=== PATIENT | male | born 1955 | race Caucasian/White ===

== ENCOUNTER → 2018-02-03 | Outpatient (CLI) | payer BC ==
--- NOTE | 2018-02-03 14:03 | RADIOLOGY REPORT (SQ) ---
EXAM DESCRIPTION: NM GASTRIC EMPTYING STUDY COMPLETED DATE/TIME: 02/03/2018 1:23 pm REASON FOR STUDY: [id number] VOMITING W/ NAUSEA (R11.2) R11.2 NAUSEA WITH VOMITING, UNSPECIFIE D COMPARISON: None. RADIONUCLIDE AND DOSE: 2 millicuries Tc-99m Sulfur Colloid. The technetium sulfur colloid was administered in an egg salad sandwich. The route of agent administration: Oral. TECHNIQUE: 1 minute serial static imaging performed at time of meal, 1 hour, 2 hours, 3 hours, and 4 hours as needed. Once stomach reaches 90% emptying, the test is complete. Image intensity values pl otted with respect to time with linear regression algorithm. LIMITATIONS: None. FINDINGS: Patient was observed for 4 hours. Immediate post meal serves as baseline. Gastric emptying at 30 minutes was 12.5%. Gastric emptying at 60 minutes was 25.1% Gastric emptying at 90 minutes was 37.6%. Gastric emptying at 120 minutes was 50.1%. Gastric emptying at 240 minutes was 100% Normal values: 60 minutes: 30-90% retained. If less than 30%, abnormally rapid emptying. If greater than 90%, del ayed gastric emptying. 120 minutes: <60% retained. If greater than 60%, delayed gastric emptying. 240 minutes: <10% retained. If greater than 10%, delayed gastric emptying. IMPRESSION: NORMAL GASTRIC EMPTYING. TECHNICAL DOCUMENTATION: JOB ID: [id number] [employer]- All Rights Reserved rev-09/05 Reading location - IP/workstation name: [email or web address]
== END ==
LOC: RAD 07:39
PROVIDERS: ATTEND Internal Medicine Gastroenterology
DX: R11.2 Nausea with vomiting, unspecified (principal)
CPT/HCPCS: 78264; A9541

== ENCOUNTER 2018-06-07 16:07 | Emergency (ER) | payer MEDICARE, BC ==
[2018-06-07] MEDS ORDERED: ASPIRIN 81 MG TABLET, CHEWABLE PO ONE (17:40)
--- NOTE | 2018-06-07 18:05 | EKG REPORT ---
SEVERITY:- ABNORMAL ECG - ATRIAL-SENSED VENTRICULAR-PACED COMPLEXES PROBABLE LEFT ATRIAL ABNORMALITY LEFT BUNDLE BRANCH BLOCK : Confirmed by: Gema Brown MD 07-Jun-2018 18:04:41
[2018-06-07 18:58] LABS: ABSOLUTE BASOPHILS # (AUTO) 0.1 10^3/uL (0.0-0.2); ABSOLUTE EOSINOPHILS # (AUTO) 0.3 10^3/uL (0.0-0.6); ABSOLUTE LYMPHOCYTES (AUTO) 1.8 10^3/uL (0.5-4.7); ABSOLUTE MONOCYTES (AUTO) 0.9 10^3/uL (0.1-1.4); ABSOLUTE NEUT (AUTO) 7.8 10^3/uL (1.7-8.2); BASOPHILS % (AUTO) 0.7 % (0-2); EOSINOPHILS % (AUTO) 3.2 % (0-6); HEMOGLOBIN 12.6 g/dL (13.5-17.0); LYMPHOCYTES % (AUTO) 16.7 % (13-45); MEAN CORPUSCULAR HEMOGLOBIN 28.2 pg (27.0-33.4); MEAN CORPUSCULAR HGB CONC 34.2 g/dL (32.0-36.0); MEAN CORPUSCULAR VOLUME 83 fl (80-97); PLATELET COUNT 245 10^3/uL (150-450); RED BLOOD COUNT 4.48 10^6/uL (4.35-5.55); RED CELL DISTRIBUTION WIDTH 16.4 % (11.5-14.0); SEGMENTED NEUTROPHILS % (AUTO) 71.4 % (42-78); TOTAL CELLS COUNTED % (AUTO) 100 %; WHITE BLOOD COUNT 10.9 10^3/uL (4.0-10.5)
[2018-06-07 19:05] LABS: ALANINE AMINOTRANSFERASE 36 U/L (21-72); ALBUMIN 3.9 g/dL (3.5-5.0); ALKALINE PHOSPHATASE 80 U/L (38-126); ANION GAP 7 (5-19); ASPARTATE AMINO TRANSFERASE 30 U/L (17-59); BILIRUBIN,DIRECT 0.1 mg/dL (0.0-0.4); BILIRUBIN,TOTAL 0.4 mg/dL (0.2-1.3); BLOOD UREA NITROGEN 18 mg/dL (7-20); CALCIUM 8.5 mg/dL (8.4-10.2); CARBON DIOXIDE 30 mmol/L (22-30); CHLORIDE 100 mmol/L (98-107); GLUCOSE 110 mg/dL (75-110); POTASSIUM 4.1 mmol/L (3.6-5.0); SODIUM 137.2 mmol/L (137-145)
--- NOTE | 2018-06-07 19:12 | RADIOLOGY REPORT (SQ) ---
EXAM DESCRIPTION: CHEST SINGLE VIEW COMPLETED DATE/TIME: 06/07/2018 7:03 pm REASON FOR STUDY: chest pressure, h/o CABG and valve replacement COMPARISON: Chest x-ray 03/11/2016. EXAM PARAMETERS: NUMBER OF VIEWS: One view. TECHNIQUE: Single frontal radiographic view of the chest acquired. RADIATION DOSE: NA LIMITATIONS: None. FINDINGS: LUNGS AND PLEURA: No consolidation, pneumothorax or pleural effusion. MEDIASTINUM AND HILAR STRUCTURES: No masses. Contour normal. HEART AND VASCULAR STRUCTURES: The heart is upper normal limit in size. There is no overt vascular c ongestion. BONES: No acute findings. HARDWARE: There is a left-sided pacemaker. Sternotomy wires are present. IMPRESSION: No acute radiographic finding in the chest. TECHNICAL DOCUMENTATION: JOB ID: [id number] [employer]- All Rights Reserved Reading location - IP/workstation name: [email or web address]
--- NOTE | 2018-06-07 19:21 | ER Document Report ---
Entered by LORENE MCHUGH SCRIBE 06/07/181811 Acting as scribe for:ROSARIO CHENG DO ED Medical Screen (RME) - General Chief Complaint: Chest Pain Stated Complaint: CHEST PAIN Time Seen by Provider: 06/07/18 17:31 Primary Care Provider: VIRGINIA SAMAINEGO MD [Primary Care Provider] - Follow up as needed Mode of Arrival: Ambulatory Information source: Patient Notes: Patient is a 63-year-old male with a history of a cardiac stent, bypass (2016, pacemaker 2018) presents to the emergency department complaining of chest pain onset this morning. Patient states he was laying in bed when he began to have shoulder pain around a 0400 this morning. Patient states he placed a heating pad on his shoulder went to sleep, getting up and began to have chest pain. She describes her chest pain as waxing and waning. Faint feeling. He denies any diaphoresis, nausea, trouble breathing or cough. Patient is on warfarin and states he had his levels checked last week which was at 37. I have greeted and performed a rapid initial assessment of this patient. A comprehensive ED assessment and evaluation of the patient, analysis of test results and completion of the medical decision making process will be conducted by additional ED providers. GENERAL: Alert, interacts well. No acute distress. HEAD: Normocephalic, Atraumatic. EYES: Pupils equal, round, and reactive to light. EOMI. ENT: Oral mucosa moist, tongue midline. NECK: Full range of motion. Supple. Trachea midline. LUNGS: Clear to auscultation bilaterally, no wheezes, rales, or rhonchi. No respiratory distress. HEART: Mechanical click auscultated. Regular rate and rhythm. No murmurs, gallops, or rubs. EXTREMITIES: Moves all four extremities spontaneously. PSYCH: Normal affect, normal mood. TRAVEL OUTSIDE OF THE [place] IN LAST 30 DAYS: No - Related Data Allergies/Adverse Reactions: lisinopril Allergy (Severe, Verified 06/07/18 17:23) dexlansoprazole [From Dexilant] Allergy (Verified 08/19/15 14:12) Past Medical History - Social History Frequency of alcohol use: None Drug Abuse: None - Past Medical History Cardiac Medical History: Reports: Hx Hypercholesterolemia, Hx Hypertension Denies: Hx Heart Attack Pulmonary Medical History: Reports: Hx Asthma - ALLERGY INDUCED, Hx Pneumonia, Hx Sleep Apnea Denies: Hx Tuberculosis Neurological Medical History: Reports: Hx Cerebrovascular Accident - Patient reports having a stroke when he was 36 years old.. Denies: Hx Seizures Endocrine Medical History: Reports: Hx Diabetes Mellitus Type 2 Renal/ Medical History: Reports: Hx Benign Prostatic Hyperplasia. Denies: Hx Peritoneal Dialysis GI Medical History: Reports: Hx Gastroesophageal Reflux Disease, Hx Hiatal Hernia. Denies: Hx Hepatitis, Hx Ulcer Musculoskeltal Medical History: Reports Hx Arthritis, Reports Hx Gout Psychiatric Medical History: Denies: Hx Depression Traumatic Medical History: Reports: Hx Fractures - r arm, r leg, mandible, clavicle Infectious Medical History: Denies: Hx Hepatitis Past Surgical History: Reports: Hx Cardiac Surgery - pacemaker, Hx Open Heart Surgery - cabg/avr, Hx Orthopedic Surgery - l shoulder, Hx Testicular Surgery - turp, Hx Urinary Tract Surgery - TURP. Denies: Hx Pacemaker - Immunizations Hx Diphtheria, Pertussis, Tetanus Vaccination: Yes Physical Exam - Vital signs Vitals: Temp Pulse Resp BP Pulse Ox 99.1 F 76 18 158/54 H 97 06/07/18 16:27 06/07/18 16:27 06/07/18 16:27 06/07/18 16:27 06/07/18 16:27 Course - Vital Signs Vital signs: Temp Pulse Resp BP Pulse Ox 99.1 F 76 18 158/54 H 97 06/07/18 16:27 06/07/18 16:27 06/07/18 16:27 06/07/18 16:27 06/07/18 16:27 Doctor's Discharge - Discharge Referrals: VIRGINIA SAMANIEGO MD [Primary Care Provider] - Follow up as needed I personally performed the services described in the documentation, reviewed and edited the documentation which was dictated to the scribe in my presence, and it accurately records my words and actions.
[2018-06-07] MEDS ORDERED: KETOROLAC TROMETHAMINE INJ/PF 30 MG/1 ML SDV IV ONE (20:39)
[2018-06-07] MEDS ORDERED: ASPIRIN 81 MG TABLET, CHEWABLE ONE (20:43)
[2018-06-07 20:51] VITALS: BP 117/72
--- NOTE | 2018-06-07 21:19 | ER Document Report ---
ED General - General Chief Complaint: Chest Pain Stated Complaint: CHEST PAIN Time Seen by Provider: 06/07/18 17:31 Primary Care Provider: VIRGINIA SAMANIEGO MD [NO LOCAL MD] - Follow up in 3-5 days Mode of Arrival: Ambulatory Notes: Patient is a 63-year-old male with a past medical history of coronary disease status post bypass, hypertension, hyperlipidemia, presents with an episode of chest pain that has been ongoing since 6 AM this morning. Patient states that he woke up with pain in his right shoulder. He states that he applied a heating pad went back to bed. States when he woke up around 6 to 6:30 AM he noticed a throbbing, aching pain over his left chest. Nothing seemed to improve or worsen this pain. Denies a history of similar pain in the recent past. Denies associated nausea, vomiting, radiation of the pain to the arm, jaw or back. No shortness of breath. Did not contact his primary care physician regarding today's concerns. States that his symptoms have eased off since coming to the emergency department. TRAVEL OUTSIDE OF THE [place] IN LAST 30 DAYS: No - Related Data Allergies/Adverse Reactions: lisinopril Allergy (Severe, Verified 06/07/18 17:23) dexlansoprazole [From Dexilant] Allergy (Verified 08/19/15 14:12) Past Medical History - General Information source: Patient - Social History Smoking Status: Former Smoker Frequency of alcohol use: None Drug Abuse: None Lives with: Family Family History: Reviewed & Not Pertinent Patient has suicidal ideation: No Patient has homicidal ideation: No - Past Medical History Cardiac Medical History: Reports: Hx Hypercholesterolemia, Hx Hypertension Denies: Hx Heart Attack Pulmonary Medical History: Reports: Hx Asthma - ALLERGY INDUCED, Hx Pneumonia, Hx Sleep Apnea Denies: Hx Tuberculosis Neurological Medical History: Reports: Hx Cerebrovascular Accident - Patient reports having a stroke when he was 36 years old.. Denies: Hx Seizures Endocrine Medical History: Reports: Hx Diabetes Mellitus Type 2 Renal/ Medical History: Reports: Hx Benign Prostatic Hyperplasia. Denies: Hx Peritoneal Dialysis GI Medical History: Reports: Hx Gastroesophageal Reflux Disease, Hx Hiatal Hernia. Denies: Hx Hepatitis, Hx Ulcer Musculoskeletal Medical History: Reports Hx Arthritis, Reports Hx Gout Psychiatric Medical History: Denies: Hx Depression Traumatic Medical History: Reports: Hx Fractures - r arm, r leg, mandible, clavicle Infectious Medical History: Denies: Hx Hepatitis Past Surgical History: Reports: Hx Cardiac Surgery - pacemaker, Hx Open Heart Surgery - cabg/avr, Hx Orthopedic Surgery - l shoulder, Hx Testicular Surgery - turp, Hx Urinary Tract Surgery - TURP. Denies: Hx Pacemaker - Immunizations Hx Diphtheria, Pertussis, Tetanus Vaccination: Yes Hx Pneumococcal Vaccination: 03/18/13 Review of Systems - Review of Systems Notes: Constitutional: Negative for fever. HENT: Negative for sore throat. Eyes: Negative for visual changes. Cardiovascular: Positive for chest pain. Respiratory: Negative for shortness of breath. Gastrointestinal: Negative for abdominal pain, vomiting or diarrhea. Genitourinary: Negative for dysuria. Musculoskeletal: Positive right shoulder pain Skin: Negative for rash. Neurological: Negative for headaches, weakness or numbness. 10 point ROS negative except as marked above and in HPI. Physical Exam - Vital signs Vitals: Temp Pulse Resp BP Pulse Ox 99.1 F 76 18 158/54 H 97 06/07/18 16:27 06/07/18 16:27 06/07/18 16:27 06/07/18 16:27 06/07/18 16:27 Interpretation: Hypertensive Notes: PHYSICAL EXAMINATION: GENERAL: Well-appearing, well-nourished and in no acute distress. HEAD: Atraumatic, normocephalic. EYES: Pupils equal round and reactive to light, extraocular movements intact, sclera anicteric, conjunctiva are normal. ENT: nares patent, oropharynx clear without exudates. Moist mucous membranes. NECK: Normal range of motion, supple without lymphadenopathy LUNGS: Breath sounds clear to auscultation bilaterally and equal. No wheezes rales or rhonchi. HEART: Regular rate and rhythm without murmurs ABDOMEN: Soft, nontender, normoactive bowel sounds. No guarding, no rebound. No masses appreciated. EXTREMITIES: Normal range of motion, no pitting or edema. No cyanosis. NEUROLOGICAL: No focal neurological deficits. Moves all extremities spontaneo usly and on command. PSYCH: Normal mood, normal affect. SKIN: Warm, Dry, normal turgor, no rashes or lesions noted. Course - Re-evaluation Re-evalutation: 06/07/18 20:41 Presentation of chest pain in an otherwise well appearing patient. Low clinical suspicion for ACS given clinical history, exam, EKG without ST elevations or dep ressions, and negative initial troponin. PE also seems unlikely given clinical history, absence of tachycardia or dyspnea. Wells score 0. CXR without evidence of pneumothorax or pneumonia. No widened mediastinum. Aortic dissection also seems unlikely given history, symmetric pulses, CXR, and vitals. Repeat troponin will be obtained 3 hours after initial. I explained at length the patient and all the members present that by the variation of the patient's age and risk factors he will never be considered low risk in the context of chest pain. He did have a stress test 2 months ago which was normal. I have offered hospitalization for repeat stress testing which the patient and family are c omfortable declining at this time stating that they would rather follow-up with her superintendent operations division along with a repeat marker is normal. They understand that I cannot tell them with any degree of absolute certainty that his presentation today is noncardiac in origin and are comfortable accepting those risks. 06/07/18 22:36 Repeat troponin remains normal. Patient's chest pain remains improved. At this time will discharge with return precautions and follow-up recommendations. Verbal discharge instructions given a the bedside and opportunity for questions given. Medication warnings reviewed. Patient is in agreement with this plan and has verbalized understanding of return precautions and the need for primary care follow-up in the next 24-72 hours. - Vital Signs Vital signs: Temp Pulse Resp BP Pulse Ox 97.9 F 76 18 117/72 97 06/07/18 20:46 06/07/18 16:27 06/07/18 22:02 06/07/18 22:02 06/07/18 22:02 - Laboratory Result Diagrams: 06/07/18 18:34 06/07/18 18:34 Laboratory results interpreted by me: 06/07/18 18:34 WBC 10.9 H Hgb 12.6 L Hct 37.0 L RDW 16.4 H - Diagnostic Test Radiology reviewed: Image reviewed, Reports reviewed Radiology results interpreted by me: 06/07/18 22:36 Chest x-ray: No acute infiltrate or pneumothorax - EKG Interpretation by Me Additional EKG results interpreted by me: 06/07/18 22:36 Atrial sensed, ventricular paced rhythm. Rate 72. Discharge - Discharge Clinical Impression: Chest pain Qualifiers: Chest pain type: unspecified Qualified Code(s): R07.9 - Chest pain, unspecified Shoulder pain Qualifiers: Chronicity: acute Laterality: right Qualified Code(s): M25.511 - Pain in right shoulder Condition: Good Disposition: HOME, SELF-CARE Additional Instructions: You were seen today for chest pain. The exact cause of your pain is unclear. However, based on your cardiac enzyme testing, chest x-ray, and EKG it does not appear that it is from an immediately life-threatening cause at this time. Although your testing here is normal is critical that you follow-up with your primary care physician for continued evaluation of this chest pain and possible stress testing. I recommended you see your physician within the next 24-48 hours to be evaluated for consideration of a stress test. Please return to emergency department immediately if you have worsening of your chest pain, shortness of breath, vomiting, become unable to exert yourself due to pain or difficulty breathing, you pass out, or have any pain that radiates into your arms, jaw, or back. Please also return if you have any additional symptoms that are concerning to you. Referrals: VIRGINIA SAMANIEGO MD [NO LOCAL MD] - Follow up in 3-5 days
== END 2018-06-07 23:02 | disposition home or self-care (01) ==
LOC: ER 16:07
DX: R07.9 Chest pain, unspecified (principal); M25.511 Pain in right shoulder; I25.10 Atherosclerotic heart disease of native coronary artery without angina pectoris; I10 Essential (primary) hypertension; E78.5 Hyperlipidemia, unspecified; Z87.891 Personal history of nicotine dependence; E11.9 Type 2 diabetes mellitus without complications; J45.909 Unspecified asthma, uncomplicated
CPT/HCPCS: 93005; 99285; 96374; 36415; 85025; 80053; 84484; 71045; 93010; A9270; J1885

== ENCOUNTER 2019-03-01 22:49 | Emergency (ER) | payer MEDICARE, BC ==
[2019-03-01 23:33] LABS: INTERNATIONAL RATION (INR) 2.67
[2019-03-01 23:34] LABS: PARTIAL THROMBOPLASTIN TIME 38.5 SEC (23.5-35.8)
[2019-03-01 23:35] LABS: ABSOLUTE BASOPHILS # (AUTO) 0.1 10^3/uL (0.0-0.2); ABSOLUTE EOSINOPHILS # (AUTO) 0.2 10^3/uL (0.0-0.6); ABSOLUTE LYMPHOCYTES (AUTO) 1.9 10^3/uL (0.5-4.7); ABSOLUTE MONOCYTES (AUTO) 1.1 10^3/uL (0.1-1.4); ABSOLUTE NEUT (AUTO) 7.1 10^3/uL (1.7-8.2); BASOPHILS % (AUTO) 1.1 % (0-2); EOSINOPHILS % (AUTO) 2.4 % (0-6); HEMATOCRIT 38.9 % (37.9-51.0); HEMOGLOBIN 12.7 g/dL (13.5-17.0); MEAN CORPUSCULAR HEMOGLOBIN 28.5 pg (27.0-33.4); MEAN CORPUSCULAR HGB CONC 32.8 g/dL (32.0-36.0); MEAN CORPUSCULAR VOLUME 87 fl (80-97); MONOCYTES % (AUTO) 10.3 % (3-13); PLATELET COUNT 266 10^3/uL (150-450); RED BLOOD COUNT 4.47 10^6/uL (4.35-5.55); RED CELL DISTRIBUTION WIDTH 16.4 % (11.5-14.0); SEGMENTED NEUTROPHILS % (AUTO) 68.2 % (42-78); TOTAL CELLS COUNTED % (AUTO) 100 %; WHITE BLOOD COUNT 10.4 10^3/uL (4.0-10.5)
--- NOTE | 2019-03-01 23:37 | ER Document Report ---
ED Cardiac - General Chief Complaint: Chest Pain Stated Complaint: CHEST PAIN Time Seen by Provider: 03/01/19 23:06 Primary Care Provider: MICHAELA CISNEROS MD [Primary Care Provider] - Follow up as needed Notes: Mr. Scott Fierro is a 64 yo m w/ CAD s/p CABG, aortic valve replacement on Coumadin, hypertension, diabetes, GERD and hyperlipidemia run in by EMS for abnormal heart rate. Per patient, he was sitting watching TV when he felt a fluttering in his chest. He called out for his who came into the room and checked his pulse noted him to be bradycardic to the 40s. He felt dizzy and presyncopal and was just moaning per her. Patient states that he transmitted his report via [employer] at home prior to arrival. In route, EMS gave the patient 324 of aspirin as well as 2 sprays of nitro with some relief. Patient denies any chest pain at this point in time. He denies any shortness of breath, abdominal pain, nausea vomiting or diarrhea. He states that he had similar episodes when he had the pacemaker placed 3 years ago and it was noted at that point in time that the wire was misplaced. His daughter later presented to the room and stated that the patient was recently diagnosed with bronchitis and put on Tussionex as well as steroids prednisone. Patient states that he had history of lower extremity edema and has been taking torsemide with significant improvement in his edema. TRAVEL OUTSIDE OF THE [place] IN LAST 30 DAYS: No - Related Data Allergies/Adverse Reactions: lisinopril Allergy (Severe, Verified 06/07/18 17:23) dexlansoprazole [From Dexilant] Allergy (Verified 08/19/15 14:12) Home Medications: coumadin Past Medical History - Social History Smoking Status: Never Smoker Family History: Reviewed & Not Pertinent Patient has suicidal ideation: No Patient has homicidal ideation: No - Past Medical History Cardiac Medical History: Reports: Hx Hypercholesterolemia, Hx Hypertension Denies: Hx Heart Attack Pulmonary Medical History: Reports: Hx Asthma - ALLERGY INDUCED, Hx Pneumonia, Hx Sleep Apnea Denies: Hx Tuberculosis Neurological Medical History: Reports: Hx Cerebrovascular Accident - Patient reports having a stroke when he was 36 years old.. Denies: Hx Seizures Endocrine Medical History: Reports: Hx Diabetes Mellitus Type 2 Renal/ Medical History: Reports: Hx Benign Prostatic Hyperplasia. Denies: Hx Peritoneal Dialysis GI Medical History: Reports: Hx Gastroesophageal Reflux Disease, Hx Hiatal Hernia. Denies: Hx Hepatitis, Hx Ulcer Musculoskeletal Medical History: Reports Hx Arthritis, Reports Hx Gout Psychiatric Medical History: Denies: Hx Depression Traumatic Medical History: Reports: Hx Fractures - r arm, r leg, mandible, clavicle Infectious Medical History: Denies: Hx Hepatitis Past Surgical History: Reports: Hx Cardiac Surgery - pacemaker, Hx Open Heart Surgery - cabg/avr, Hx Orthopedic Surgery - l shoulder, Hx Testicular Surgery - turp, Hx Urinary Tract Surgery - TURP. Denies: Hx Pacemaker - Immunizations Hx Diphtheria, Pertussis, Tetanus Vaccination: Yes Hx Pneumococcal Vaccination: 03/18/13 Review of Systems - Review of Systems Constitutional: See HPI EENT: No symptoms reported Cardiovascular: See HPI Respiratory: See HPI Gastrointestinal: No symptoms reported Genitourinary: No symptoms reported Male Genitourinary: No symptoms reported Musculoskeletal: No symptoms reported Skin: No symptoms reported Hematologic/Lymphatic: No symptoms reported Neurological/Psychological: No symptoms reported Physical Exam - Vital signs Vitals: Resp 21 H 03/01/19 22:52 Interpretation: Normal - General General appearance: Appears well, Alert - HEENT Head: Normocephalic, Atraumatic Eyes: Normal Pupils: PERRL - Respiratory Respiratory status: No respiratory distress Chest status: Nontender Breath sounds: Normal Chest palpation: Normal - Cardiovascular Rhythm: Regular Heart sounds: Normal auscultation Murmur: Yes - aortic systolic click - Abdominal Inspection: Normal Distension: No distension Bowel sounds: Normal Tenderness: Nontender Organomegaly: No organomegaly - Back Back: Normal, Nontender - Extremities General upper extremity: Normal inspection, Nontender, Normal color, Normal ROM, Normal temperature General lower extremity: Normal inspection, Nontender, Normal color, Normal ROM, Normal temperature, Normal weight bearing, Other - +1 pitting edema bilaterally @ midshin. No: Osmar's sign - Neurological Neuro grossly intact: Yes Cognition: Normal Orientation: AAOx4 Orlin Coma Scale Eye Opening: Spontaneous Broussard Coma Scale Verbal: Oriented Broussard Coma Scale Motor: Obeys Commands Orlin Coma Scale Total: 15 Speech: Normal Motor strength normal: LUE, RUE, LLE, RLE Sensory: Normal - Psychological Associated symptoms: Normal affect, Normal mood - Skin Skin Temperature: Warm Skin Moisture: Dry Skin Color: Normal Course - Re-evaluation Re-evalutation: 03/01/19 23:34 Received call from [employer] account development representative, Efrain Linda. Pacemaker grossly normal. If he went bradycardic, pacemaker will pace to 60. No reported If patient went into VT>150 for 4beats, account development representative would see it. Battery is good. No other acute events or arrhythmia in the past month. 03/02/19 01:10 CBC and CMP within normal limits. CMP is notable for hyperglycemia only at 226 over the patient has been on some steroids for bronchitis. BNP is within normal limits. Chest x-ray shows cardiomegaly with venous congestion. 03/02/19 01:19 Patient's daughter noted that he became acutely bradycardic to 40s to 50s. She called the nurse in the room who repeated an EKG EKG shows evidence of bradycardia. The rate is read at 150 however I think this is erroneous. Patient's heart rate appears to be 60. He also has evidence of intermittent pauses with paired ventricular premature complexes. He is not completely capturing with his pacemaker any longer. 03/02/19 01:21 I discussed this with both the patient and his family at the bedside (daughter, and friend). Daughter is an RN. He states that the patient gets all his care at [facility] with basket assembler Dr. Zamora and Dr. Pritchett. Transfer initiated. 03/02/19 01:[address] De Leon, basket assembler at [facility] feels that the patient's p acemaker just needs to be reprogrammed enough to suppress the ectopy. He states that the patient has an appointment with Dr. Camarena on Friday. I explained that I do not feel comfortable discharging the patient given his ventricular pauses that he is having here in the ED that are documented on EKG as well as during my evaluation at the bedside. He recommended admission to the hospitalist for further care. Discussion with charge nurse Adali, it was explained that the hospitalist will not feel comfortable taking care of this patient as we do not have electrophysiology capabilities. The only thing that could be done could the patient's pacemaker stopped functioning would be place a transvenous pacemaker which the patient does not need he already has an implanted pacemaker which does need to be reprogrammed. In the meantime I was able to go speak to the patient's family at the bedside. Daughter is not comfortable with the patient being admitted here to [facility] and would prefer the patient to be transferred to [facility] where he gets the remainder of his care to have the pacemaker reprogrammed and reevaluated sooner rather than later. 03/02/19 01:[address] Zamora, who feels that a [employer] account development representative needs to evaluate the pacemaker at the bedside to see if any simple adjustments need to be made. I explained that this is not typical procedure here at [facility], especially since the [employer] account development representative remotely stated that everything with the pacemaker is otherwise unremarkable. Dr. Zamora will speak to Dr. Worthy and assess if the transfer has been accepted and call me back. 03/02/19 02:01 Dr. Zamora states that Dr. Worthy has not accepted the transfer and will not accept the transfer until the [employer] account development representative is at the bedside and evaluate the pacemaker. Dr. Zamora will call [employer] at this point in time and request that a [employer] account development representative evaluate the pacemaker. 03/02/19 04:14 Efrain Linda, [employer] account development representative at the bedside. He evaluated the pacemaker again and noted that the patient was occasionally having his own heartbeats and this was interfering with the pacemaker and causing it to drop a beat. The patient was previously in managed ventricular pacing. He change it into dual-chamber pacing. He will speak with Dr. Zamora, the basket assembler. 03/02/19 05:06 Spoke to Layo from the transfer center. States that Dr. Worthy stated he is no longer a part of this case. Would recommend discussion with Dr. Zamora. 03/02/19 05:38 After re-discussing the case with Dr. Zamora, he feels that the patient does not warrant any further transfer evaluation. He feels that this patient should not have been on MVP mode and now that this mode is turned off, the patient should have no further issues. He recommended that the patient be discharged. I discussed this at length with the patient and his . They are amenable to discharge. They do have a follow-up appointment with patient's basket assembler Dr. Camarena on Friday. I also explained to them that both Dr. Zamora and Dr. Pritchett [facility] this week should they need further evaluation. Patient is given return precautions. - Vital Signs Vital signs: Temp Pulse Resp BP Pulse Ox 13 130/94 H 98 03/02/19 06:00 03/02/19 04:00 03/02/19 06:00 - Laboratory Result Diagrams: 03/01/19 23:10 03/01/19 23:10 Laboratory results interpreted by me: 03/01/19 03/01/19 03/01/19 23:10 23:10 23:10 Hgb 12.7 L RDW 16.4 H PT APTT BUN 30 H Glucose 226 H NT-Pro-B Natriuret Pep 161 H 03/01/19 23:10 Hgb RDW PT 29.0 H APTT 38.5 H BUN Glucose NT-Pro-B Natriuret Pep - EKG Interpretation by Me Rate: Tachycardia Rhythm: Other - Atrial sensed ventricular paced complexes atrial sensed ventricular paced complexes Additional EKG results interpreted by me: 03/02/19 06:37 Repeat EKG performed at 00: 5 1 shows evidence of paired ventricular premature complexes with prolonged pauses approximately 1.6 seconds long. Incomplete pacing. Critical Care Note - Critical Care Note Total time excluding time spent on procedures (mins): 30 Discharge - Discharge Clinical Impression: Pacemaker complications, Pre-syncope, Dizziness Condition: Good Disposition: HOME, SELF-CARE Instructions: Pacemaker Evaluation (OM) Additional Instructions: Please make sure you follow-up with Dr. Camarena on your appointment on Friday. If you have any lightheadedness, chest pain, shortness of breath wit h exertion, or any other concerning symptoms, please return to the ED for further evaluation. Dr. Pritchett as well as Dr. Zamora will be in the office this week as well here in [place] and Dr. Zamora stated they would be happy to reevaluate you should your symptoms persist. Referrals: MICHAELA CISNEROS MD [Primary Care Provider] - Follow up as needed
[2019-03-01 23:47] LABS: ALBUMIN 3.7 g/dL (3.5-5.0); ALKALINE PHOSPHATASE 79 U/L (38-126); ANION GAP 12 (5-19); ASPARTATE AMINO TRANSFERASE 27 U/L (17-59); BILIRUBIN,DIRECT 0.2 mg/dL (0.0-0.4); BILIRUBIN,TOTAL 0.4 mg/dL (0.2-1.3); BLOOD UREA NITROGEN 30 mg/dL (7-20); CALCIUM 8.5 mg/dL (8.4-10.2); CARBON DIOXIDE 25 mmol/L (22-30); CHLORIDE 102 mmol/L (98-107); GLUCOSE 226 mg/dL (75-110); POTASSIUM 3.8 mmol/L (3.6-5.0); TOTAL PROTEIN 6.9 g/dL (6.3-8.2)
--- NOTE | 2019-03-01 23:49 | RADIOLOGY REPORT (SQ) ---
EXAM DESCRIPTION: XR CHEST 2 VIEWS COMPLETED DATE/TME: 03/01/2019 23:13 CLINICAL HISTORY: syncopal episode COMPARISON: 06/07/2018 FINDINGS: Frontal and lateral views of the chest. Cardiomediastinal silhouette: Cardiomegaly. Prior median sternotomy. Left-sided pacemaker. Pulmonary vascular congestion. Lungs: Low lung volumes. No large effusion or pneumothorax. Bones: Degenerative change of the spine. Upper abdomen: No abnormality identified. IMPRESSION: 1. Cardiomegaly with pulmonary vascular congestion.
[2019-03-02] LABS: CREATINE KINASE MB 1.74 ng/mL (<4.55); NT PRO BNP 161 pg/mL (<125)
[2019-03-02 00:01] LABS: TROPONIN I < 0.012 ng/mL
[2019-03-02 06:16] VITALS: BP 130/94
--- NOTE | 2019-03-02 16:19 | EKG REPORT ---
SEVERITY:- ABNORMAL ECG - SINUS TACHYCARDIA PAIRED VENTRICULAR PREMATURE COMPLEXES PROBABLE LEFT ATRIAL ABNORMALITY LEFT BUNDLE BRANCH BLOCK : Confirmed by: Gema Brown MD 02-Mar-2019 16:17:27
--- NOTE | 2019-03-02 16:19 | EKG REPORT ---
SEVERITY:- ABNORMAL ECG - ATRIAL-SENSED VENTRICULAR-PACED COMPLEXES NONSPECIFIC IVCD WITH LAD LVH WITH SECONDARY REPOLARIZATION ABNORMALITY : Confirmed by: Gema Brown MD 02-Mar-2019 16:17:31
== END 2019-03-02 06:17 | disposition home or self-care (01) ==
LOC: ER 22:49
DX: T82.191A Other mechanical complication of cardiac pulse generator (battery), initial encounter (principal); R07.9 Chest pain, unspecified; R42 Dizziness and giddiness; R00.1 Bradycardia, unspecified; M79.89 Other specified soft tissue disorders; I10 Essential (primary) hypertension; Z79.01 Long term (current) use of anticoagulants; E11.9 Type 2 diabetes mellitus without complications; J45.909 Unspecified asthma, uncomplicated
CPT/HCPCS: 36415; 71046; 80053; 82553; 83880; 84484; 85025; 85610; 85730; 93005; 93010; 99291

== ENCOUNTER 2019-10-26 08:15 | Emergency (ER) | payer BC, MEDICARE ==
--- NOTE | 2019-10-26 09:23 | ER Document Report ---
ED General - General Chief Complaint: Near Syncope Stated Complaint: DIZZY Time Seen by Provider: 10/26/19 09:23 Primary Care Provider: MICHAELA CISNEROS MD [Primary Care Provider] - Follow up as needed TRAVEL OUTSIDE OF THE [place] IN LAST 30 DAYS: No - HPI Patient complains to provider of: near syncope Notes: 64-year-old man with history of mechanical heart valve, pacemaker dependent presents with episode of near syncope while driving. Patient states he felt he was going to pass out pulled the car over. Went to see his daughter who is a nurse practitioner blood pressure was greater than 200 systolic which is abnormal for this patient. Patient states he is feeling better now denies any chest pain, nausea, vomiting, diaphoresis with these episodes. Patient states he has had episodes of this in the past. But this 1 lasted longer. - Related Data Allergies/Adverse Reactions: lisinopril Allergy (Severe, Verified 06/07/18 17:23) dexlansoprazole [From Dexilant] Allergy (Verified 08/19/15 14:12) Home Medications: metformin, carvedilol, tossemide, omeprazole, losartan, buspirone, clonidine, k+, buproprion SL, allopurinol, montelocast, promeride Past Medical History - Social History Smoking Status: Former Smoker Frequency of alcohol use: None Drug Abuse: None Family History: Reviewed & Not Pertinent Patient has homicidal ideation: No - Past Medical History Cardiac Medical History: Reports: Hx Hypercholesterolemia, Hx Hypertension Denies: Hx Heart Attack Pulmonary Medical History: Reports: Hx Asthma - ALLERGY INDUCED, Hx Pneumonia, Hx Sleep Apnea Denies: Hx Tuberculosis Neurological Medical History: Reports: Hx Cerebrovascular Accident - Patient reports having a stroke when he was 36 years old.. Denies: Hx Seizures Endocrine Medical History: Reports: Hx Diabetes Mellitus Type 2 Renal/ Medical History: Reports: Hx Benign Prostatic Hyperplasia. Denies: Hx Peritoneal Dialysis GI Medical History: Reports: Hx Gastroesophageal Reflux Disease, Hx Hiatal Hernia. Denies: Hx Hepatitis, Hx Ulcer Musculoskeletal Medical History: Reports Hx Arthritis, Reports Hx Gout Psychiatric Medical History: Denies: Hx Depression Traumatic Medical History: Reports: Hx Fractures - r arm, r leg, mandible, clavicle Infectious Medical History: Denies: Hx Hepatitis Past Surgical History: Reports: Hx Cardiac Surgery - pacemaker, Hx Open Heart Surgery - cabg/avr, Hx Orthopedic Surgery - l shoulder, Hx Testicular Surgery - turp, Hx Urinary Tract Surgery - TURP. Denies: Hx Pacemaker - Immunizations Hx Diphtheria, Pertussis, Tetanus Vaccination: Yes Hx Pneumococcal Vaccination: 03/18/13 Review of Systems - Review of Systems Notes: REVIEW OF SYSTEMS: CONSTITUTIONAL: -fevers, -chills EENT: -eye pain, -difficulty swallowing, -nasal congestion CARDIOVASCULAR: -chest pain, -syncope. RESPIRATORY: -cough, -SOB GASTROINTESTINAL: -abdominal pain, -nausea, -vomiting, -diarrhea GENITOURINARY: -dysuria, -hematuria MUSCULOSKELETAL: -back pain, -neck pain SKIN: -rash or skin lesions. HEMATOLOGIC: -easy bruising or bleeding. LYMPHATIC: -swollen, enlarged glands. NEUROLOGICAL: -altered mental status or loss of consciousness, -headache, - neurologic symptoms PSYCHIATRIC: -anxiety, -depression. ALL OTHER SYSTEMS REVIEWED AND NEGATIVE. Physical Exam - Vital signs Vitals: Temp 98.1 F 10/26/19 08:20 - Notes Notes: PHYSICAL EXAMINATION: GENERAL: Well-appearing, well-nourished and in no acute distress. HEAD: Atraumatic, normocephalic. EYES: Pupils equal round and reactive to light, extraocular movements intact, sclera anicteric, conjunctiva are normal. ENT: nares patent, oropharynx clear without exudates. Moist mucous membranes. NECK: Normal range of motion, supple without lymphadenopathy LUNGS: Breath sounds clear to auscultation bilaterally and equal. No wheezes rales or rhonchi. HEART: Regular rate and rhythm without murmurs ABDOMEN: Soft, nontender, normoactive bowel sounds. No guarding, no rebound. No masses appreciated. EXTREMITIES: Normal range of motion, no pitting or edema. No cyanosis. NEUROLOGICAL: Cranial nerves grossly intact. Normal sensory and motor exams. PSYCH: Normal mood, normal affect. SKIN: Warm, Dry, normal turgor, no rashes or lesions noted. Course - Re-evaluation Re-evalutation: 10/26/19 09:33 -appearing man now resolved symptoms of near syncope. Patient has a [place] pacemaker placed. 10/26/19 10:56 Appearing man in no acute distress resolved symptoms. EKG has no abnormalities. Extensive lab work-up unremarkable. Pacemaker interrogated. Shows no arrhythmias or abnormalities. Patient be discharged home improved follow-up cardiology return if anything changes - Vital Signs Vital signs: Temp Pulse Resp BP Pulse Ox 98.1 F 10/26/19 08:20 - Laboratory Result Diagrams: 10/26/19 08:50 10/26/19 08:50 Laboratory results interpreted by me: 10/26/19 10/26/19 10/26/19 08:50 08:50 08:50 Hgb 13.4 L RDW 16.0 H PT 22.6 H Sodium 136.4 L Glucose 174 H Discharge - Discharge Clinical Impression: Dizziness Condition: Stable Disposition: HOME, SELF-CARE Additional Instructions: See Your fiberglass autobody repairer Referrals: MICHAELA CISNEROS MD [Primary Care Provider] - Follow up as needed
[2019-10-26 09:25] LABS: ABSOLUTE BASOPHILS # (AUTO) 0.1 10^3/uL (0.0-0.2); ABSOLUTE EOSINOPHILS # (AUTO) 0.4 10^3/uL (0.0-0.6); ABSOLUTE LYMPHOCYTES (AUTO) 1.2 10^3/uL (0.5-4.7); ABSOLUTE MONOCYTES (AUTO) 0.7 10^3/uL (0.1-1.4); ABSOLUTE NEUT (AUTO) 6.3 10^3/uL (1.7-8.2); BASOPHILS % (AUTO) 0.9 % (0-2); EOSINOPHILS % (AUTO) 4.3 % (0-6); HEMATOCRIT 39.8 % (37.9-51.0); HEMOGLOBIN 13.4 g/dL (13.5-17.0); MEAN CORPUSCULAR HEMOGLOBIN 28.2 pg (27.0-33.4); MEAN CORPUSCULAR HGB CONC 33.8 g/dL (32.0-36.0); MEAN CORPUSCULAR VOLUME 83 fl (80-97); MONOCYTES % (AUTO) 7.7 % (3-13); PLATELET COUNT 255 10^3/uL (150-450); RED BLOOD COUNT 4.77 10^6/uL (4.35-5.55); SEGMENTED NEUTROPHILS % (AUTO) 73.1 % (42-78); TOTAL CELLS COUNTED % (AUTO) 100 %; WHITE BLOOD COUNT 8.6 10^3/uL (4.0-10.5)
[2019-10-26 09:28] LABS: APPEARANCE,URINE CLEAR; BILIRUBIN,URINE NEGATIVE (NEGATIVE); COLOR,URINE YELLOW; GLUCOSE, URINE NEGATIVE (NEGATIVE); KETONES,URINE NEGATIVE (NEGATIVE); LEUKOCYTE ESTERASE,URINE NEGATIVE (NEGATIVE); NITRITE,URINE NEGATIVE (NEGATIVE); PROTEIN,URINE NEGATIVE (NEGATIVE); URINE SPECIFIC GRAVITY 1.006; UROBILINOGEN,URINE NEGATIVE mg/dL (<2.0)
[2019-10-26 09:30] LABS: ALKALINE PHOSPHATASE 79 U/L (38-126); ANION GAP 7 (5-19); ASPARTATE AMINO TRANSFERASE 25 U/L (17-59); BILIRUBIN,TOTAL 0.6 mg/dL (0.2-1.3); BLOOD UREA NITROGEN 15 mg/dL (7-20); CALCIUM 8.9 mg/dL (8.4-10.2); CARBON DIOXIDE 27 mmol/L (22-30); CHLORIDE 102 mmol/L (98-107); CREATINE KINASE 100 U/L (55-170); GLUCOSE 174 mg/dL (75-110); TOTAL PROTEIN 7.2 g/dL (6.3-8.2)
[2019-10-26 09:44] LABS: INTERNATIONAL RATION (INR) 1.96; PROTHROMBIN TIME 22.6 SEC (11.4-15.4)
[2019-10-26 09:52] LABS: CREATINE KINASE MB 1.23 ng/mL (<4.55)
[2019-10-26 09:53] LABS: TROPONIN I < 0.012 ng/mL
--- NOTE | 2019-10-26 10:20 | RADIOLOGY REPORT (SQ) ---
EXAM DESCRIPTION: CHEST SINGLE VIEW IMAGES COMPLETED DATE/TIME: 10/26/2019 9:40 am REASON FOR STUDY: near syncope COMPARISON: Two-view chest 03/01/2019 AP chest 06/07/2018 EXAM PARAMETERS: NUMBER OF VIEWS: One view. TECHNIQUE: Single frontal radiographic view of the chest acquired. RADIATION DOSE: NA LIMITATIONS: None. FINDINGS: LUNGS AND PLEURA: No opacities, masses or pneumothorax. No pleural effusion. MEDIASTINUM AND HILAR STRUCTURES: No masses. Contour normal. HEART AND VASCULAR STRUCTURES: Stable borderline cardiomegaly. Old sternotomy for CABG BONES: No acute findings. HARDWARE: Left-sided dual lead pacemaker OTHER: No other significant finding. IMPRESSION: NO ACUTE RADIOGRAPHIC FINDING IN THE CHEST. TECHNICAL DOCUMENTATION: JOB ID: [id number] 2010 [employer]- All Rights Reserved Reading location - IP/workstation name: [email or web address]
[2019-10-26 11:01] VITALS: BP 132/59
--- NOTE | 2019-10-26 12:05 | EKG REPORT ---
SEVERITY:- ABNORMAL ECG - ATRIAL-SENSED VENTRICULAR-PACED COMPLEXES : Confirmed by: Jhonathan Robertson MD 26-Oct-2019 12:04:52
== END 2019-10-26 11:05 | disposition home or self-care (01) ==
LOC: ER 08:15
DX: R42 Dizziness and giddiness (principal); R55 Syncope and collapse; J45.909 Unspecified asthma, uncomplicated; E11.9 Type 2 diabetes mellitus without complications; K21.9 Gastro-esophageal reflux disease without esophagitis; M10.9 Gout, unspecified; Z79.899 Other long term (current) drug therapy; Z79.84 Long term (current) use of oral hypoglycemic drugs; Z87.891 Personal history of nicotine dependence; Z95.2 Presence of prosthetic heart valve; Z95.0 Presence of cardiac pacemaker; Z95.1 Presence of aortocoronary bypass graft; Z88.8 Allergy status to other drugs, medicaments and biological substances
CPT/HCPCS: 36415; 71045; 80053; 81001; 82550; 82553; 84484; 85025; 85610; 93005; 93010; 99284